=== PATIENT | female | born 1985 | race Asian ===

== ENCOUNTER 2018-11-02 04:31 | Emergency (ER) | payer BC ==
[2018-11-02] VITALS (7 sets, daily range): BP systolic 125–135; BP diastolic 66–84
[~2018-11-02] VITALS: Ht 78.7 cm; Wt 95.3 kg
[2018-11-02] MEDS ORDERED: ABILIFY2 MG ORAL (04:49)
--- NOTE | 2018-11-02 04:56 | Emergency Room Report ---
History of Present Illness General Chief Complaint: Behavioral Complaint Source: Patient, Law Enforcement (LevfrenchMartha dolan DO) Present Illness HPI Patient presents on a 5150 by police department Patient was found complaining that she felt there was a bomb under her car It was felt that the patient was having auditory and visual hallucinations and was a danger to herself Here the patient denies any headache denies any chest pain Denies any other medical complaints Patient is not on any medications at this time Denies any homicidal or suicidal thoughts (Martha Martínez DO) Allergies: Coded Allergies: No Known Allergies (Unverified , 11/02/18) Patient History Past Medical History: see triage record Pertinent Family History: none Reviewed Nursing Documentation: PMH: Agreed; PSxH: Agreed (Martha Martínez DO) Nursing Documentation-PMH Past Medical History: No History, Except For History Of Psychiatric Problem: Yes - depression,schizophrenia (Martha Martínez DO) Review of Systems All Other Systems: negative except mentioned in HPI (Martha Martínez DO) Physical Exam Vital Signs Date Time Temp Pulse Resp B/P (MAP) Pulse Ox O2 Delivery O2 Flow Rate FiO2 11/02/18 04:36 97.5 95 18 121/72 98 Room Air Sp02 EP Interpretation: reviewed, normal General Appearance: well appearing, no apparent distress Head: normocephalic, atraumatic Eyes: bilateral eye PERRL, bilateral eye EOMI ENT: hearing grossly normal, normal pharynx, TMs + canals normal, uvula midline Neck: full range of motion, supple, no meningismus, no bony tend Respiratory: lungs clear, normal breath sounds, no rhonchi, no respiratory distress, no retraction, no accessory muscle use Cardiovascular #1: normal peripheral pulses, regular rate, rhythm, no edema, no gallop, no JVD, no murmur Gastrointestinal: normal bowel sounds, non tender, soft, no mass, no organomegaly, non-distended, no guarding, no hernia, no pulsatile mass, no rebound Genitourinary: no CVA tenderness Musculoskeletal: normal inspection Neurologic: oriented x3, responsive, motor strength/tone normal, sensory intact Psychiatric: mood/affect normal Skin: normal color, no rash, warm/dry, palpation normal Lymphatic: normal inspection, no adenopathy (Martha Martínez DO) Medical Decision Making Diagnostic Impression: Primary Impression: Psychosis Additional Impression: Paranoid delusion ER Course Patient has further blood work initiated to provide further medical clearance Otherwise benign medical evaluation Patient is on a 5150 (Martha Martínez DO) ER Course Patient evaluated by Dr. Sanchez who ordered Haldol decanoate. Patient wants to go home. Improved. No SI or HI. (Michael Vidales MD) Last Vital Signs Date Time Temp Pulse Resp B/P (MAP) Pulse Ox O2 Delivery O2 Flow Rate FiO2 11/02/18 04:36 97.5 95 18 121/72 98 Room Air Status: unchanged (Martha Martínez DO) Status: improved (Michael Vidales MD) Disposition: HOME, SELF-CARE Condition: Improved Referrals: NOT CHOSEN IPA/,REFERRING (PCP) Martha Martínez DO Nov 02, 2018 04:56 Michael Vidales MD Nov 02, 2018 15:59
--- NOTE | 2018-11-02 05:00 | NUR ---
ED Nurse Note: NURY LAPFelisa in a handcuffs from street next to her car blocking traffic and stating there is an orange cone under the car that was an explosive. [employer] officers found nothing underneat the car. Patient is from [place], [place]. RICK spoke with patients mother Brandy who states patient has a history of depression and schizophrenia and not taking her Abilify and [place]. Pt is AO x 3~4 times but wasn't able to follow conversation well, VSS, on room air no distress. GURPREET seen Pt at bedside.
[2018-11-02 05:51] LABS: BASOPHILS % (AUTO) 0.5 % (0.0-2.0); EOSINOPHILS % (AUTO) 1.4 % (0.0-3.0); HEMATOCRIT 35.4 % (37.0-47.0); HEMOGLOBIN 10.9 G/DL (12.0-16.0); LYMPHOCYTES % (AUTO) 15.9 % (20.0-45.0); MEAN CORPUSCULAR VOLUME 74 FL (80-99); MONOCYTES % (AUTO) 5.4 % (1.0-10.0); NEUTROPHILS % (AUTO) 76.8 % (45.0-75.0); PLATELET COUNT 411 K/UL (150-450); RED BLOOD COUNT 4.79 M/UL (4.20-5.40); RED CELL DISTRIBUTION WIDTH 16.7 % (11.6-14.8); WHITE BLOOD COUNT 14.5 K/UL (4.8-10.8)
--- NOTE | 2018-11-02 06:00 | NUR ---
ED Nurse Note: Pt stayed in restroom over 15 minutes and states: I can't pee right now, my vaginal is something wrong.
[2018-11-02 06:05] LABS: ANION GAP 9 mmol/L (5-15); BLOOD UREA NITROGEN 11 mg/dL (7-18); CALCIUM 8.3 MG/DL (8.5-10.1); CARBON DIOXIDE 26 MMOL/L (21-32); CHLORIDE 102 MMOL/L (98-107); CREATININE 0.8 MG/DL (0.55-1.30); SODIUM 137 MMOL/L (136-145)
[2018-11-02 06:09] LABS: ALANINE AMINOTRANSFERASE 25 U/L (12-78); ALBUMIN 3.5 G/DL (3.4-5.0); ALBUMIN/GLOBULIN RATIO 0.8 (1.0-2.7); ALKALINE PHOSPHATASE 98 U/L (46-116); ASPARTATE AMINO TRANSFERASE 21 U/L (15-37); BILIRUBIN,TOTAL 0.6 MG/DL (0.2-1.0)
--- NOTE | 2018-11-02 06:12 | NUR ---
ED Nurse Note: Pt belongings locked in #1.
--- NOTE | 2018-11-02 07:05 | NUR ---
HAND-OFF: Report given to Naomi SOLORZANO.
--- NOTE | 2018-11-02 07:31 | NUR ---
ED Nurse Note: Report received from RASHAD Chavez. Pt in bed sleeping comfortably, lung sounds clear, non-labored. Vital signs stable at this time. Will cont to monitor.
[2018-11-02 08:48] LABS: APPEARANCE,URINE CLEAR; BILIRUBIN, URINE NEGATIVE (NEGATIVE); COLOR,URINE PALE YELLOW; GLUCOSE, URINE (UA) NEGATIVE (NEGATIVE); KETONES,URINE NEGATIVE (NEGATIVE); LEUKOCYTE ESTERASE ,URINE 1+ (NEGATIVE); NITRITE,URINE NEGATIVE (NEGATIVE); PH,URINE 6 (4.5-8.0); PROTEIN,URINE NEGATIVE (NEGATIVE); UROBILINOGEN,URINE NORMAL MG/DL (0.0-1.0)
--- NOTE | 2018-11-02 11:30 | NUR ---
ED Nurse Note: Lunch tray provided. Pt does not want to eat at this time. No acute distress.
--- NOTE | 2018-11-02 14:55 | NUR ---
ED Nurse Note: Dr Sanchez at the bed side.
--- NOTE | 2018-11-02 15:00 | NUR ---
ED Nurse Note: Pt awake and follows commands. Able to eat at this time. Food tray given.
--- NOTE | 2018-11-02 15:06 | Consultation ---
History of Present Illness General Chief Complaint: Behavioral Complaint Present Illness HPI 33 yo female who presents on a 5150 by police department,Patient stated there was a bomb under her car. the pt denied si/hi however she was delusional and stated that [place] is [place] crime city and she has came here to solve all this issues. when i asked her where she was from the pt stated [place]> the pt was observed eating she was not agitated. she stated that she wanted to leave Allergies: Coded Allergies: No Known Allergies (Unverified , 11/02/18) Medication History Scheduled Aripiprazole* (Abilify*), 2 MG ORAL DAILY, (Reported) Patient History History Provided By: Patient, Medical Record, PMD Healthcare decision maker Resuscitation status Advanced Directive on File Review of Systems Psychiatric: Reports: emotional problems, hallucinations Physical Exam General Appearance: alert, obese Neurologic: oriented x 3, responsive, depressed affect Last 24 Hour Vital Signs Date Time Temp Pulse Resp B/P (MAP) Pulse Ox O2 Delivery O2 Flow Rate FiO2 11/02/18 11:35 97.9 77 18 135/67 98 Room Air 11/02/18 09:32 97.5 65 16 131/84 100 Room Air 11/02/18 07:33 98.0 79 18 135/74 99 Room Air 11/02/18 06:17 98.0 84 18 132/80 98 Room Air 11/02/18 06:17 90 18 Room Air 11/02/18 04:36 97.5 95 18 121/72 98 Room Air Laboratory Tests Test 11/02/18 05:15 11/02/18 05:30 Urine Color Pale yellow Urine Appearance Clear Urine pH 6 (4.5-8.0) Urine Specific [place] 1.010 (1.005-1.035) Urine Protein Negative (NEGATIVE) Urine Glucose (UA) Negative (NEGATIVE) Urine Ketones Negative (NEGATIVE) Urine Blood Negative (NEGATIVE) Urine Nitrite Negative (NEGATIVE) Urine Bilirubin Negative (NEGATIVE) Urine Urobilinogen Normal MG/DL (0.0-1.0) Urine Leukocyte Esterase 1+ (NEGATIVE) H Urine RBC 0 /HPF (0 - 2) Urine WBC 0-2 /HPF (0 - 2) Urine Squamous Epithelial Cells Few /LPF (NONE/OCC) Urine Bacteria Occasional /HPF (NONE) Urine HCG, Qualitative Negative (NEGATIVE) Urine Opiates Screen Negative (NEGATIVE) Urine Barbiturates Screen Negative (NEGATIVE) Phencyclidine (PCP) Screen Negative (NEGATIVE) Urine Amphetamines Screen Negative (NEGATIVE) Urine Benzodiazepines Screen Negative (NEGATIVE) Urine Cocaine Screen Negative (NEGATIVE) Urine Marijuana (THC) Screen Positive (NEGATIVE) H White Blood Count 14.5 K/UL (4.8-10.8) H Red Blood Count 4.79 M/UL (4.20-5.40) Hemoglobin 10.9 G/DL (12.0-16.0) L Hematocrit 35.4 % (37.0-47.0) L Mean Corpuscular Volume 74 FL (80-99) L Mean Corpuscular Hemoglobin 22.7 PG (27.0-31.0) L Mean Corpuscular Hemoglobin Concent 30.7 G/DL (32.0-36.0) L Red Cell Distribution Width 16.7 % (11.6-14.8) H Platelet Count 411 K/UL (150-450) Mean Platelet Volume 5.6 FL (6.5-10.1) L Neutrophils (%) (Auto) 76.8 % (45.0-75.0) H Lymphocytes (%) (Auto) 15.9 % (20.0-45.0) L Monocytes (%) (Auto) 5.4 % (1.0-10.0) Eosinophils (%) (Auto) 1.4 % (0.0-3.0) Basophils (%) (Auto) 0.5 % (0.0-2.0) Sodium Level 137 MMOL/L (136-145) Potassium Level 4.0 MMOL/L (3.5-5.1) Chloride Level 102 MMOL/L (98-107) Carbon Dioxide Level 26 MMOL/L (21-32) Anion Gap 9 mmol/L (5-15) Blood Urea Nitrogen 11 mg/dL (7-18) Creatinine 0.8 MG/DL (0.55-1.30) Estimat Glomerular Filtration Rate > 60 mL/min (>60) Glucose Level 101 MG/DL (74-106) Calcium Level 8.3 MG/DL (8.5-10.1) L Total Bilirubin 0.6 MG/DL (0.2-1.0) Aspartate Amino Transf (AST/SGOT) 21 U/L (15-37) Alanine Aminotransferase (ALT/SGPT) 25 U/L (12-78) Alkaline Phosphatase 98 U/L (46-116) Total Protein 7.8 G/DL (6.4-8.2) Albumin 3.5 G/DL (3.4-5.0) Globulin 4.3 g/dL Albumin/Globulin Ratio 0.8 (1.0-2.7) L Salicylates Level 0.2 ug/mL (2.8-20) L Acetaminophen Level < 2 MCG/ML (10-30) L Serum Alcohol < 3 mg/dL Height (Feet): 2 Height (Inches): 7.00 Weight (Pounds): 210 Assessment/Plan Problem List: (1) Schizophrenia ICD Codes: F20.9 - Schizophrenia, unspecified SNOMED: [id number] Assessment/Plan haldol dec 50mg IM the pt 5150 was dced the pt was discharged Harry Sanchez MD Nov 02, 2018 15:06
--- NOTE | 2018-11-02 15:08 | NUR ---
ED Nurse Note: Dr Daniel bishop to discharge the patient and ER MD aware.
[2018-11-02] MEDS ORDERED: Haloperidol Decanoate 50mg Inj IM SCH (15:15)
--- NOTE | 2018-11-02 17:18 | NUR ---
ED Nurse Note: Pt is cleared by Health Care Provider for discharge. DC instructions was given and explained to pt and verbalized understanding of teachings given. All medical devices such as ID band/IV removed. Pt given a taxi voucher for transportation. Pt AAO x4, ambulatory and left with all personal belongings.
== END 2018-11-02 17:18 | disposition home or self-care (01) ==
LOC: EMR 04:50
DX: F20.0 Paranoid schizophrenia (principal)
CPT/HCPCS: 36415; 80053; 80307; 81003; 81025; 85025; 96372; 99285; G0480; J1631; 80329